=== PATIENT | male | born 1990 | race Caucasian/White ===

== ENCOUNTER 2025-04-18 16:22 | Emergency (ER) | payer BC, SELFPAY ==
[2025-04-18 16:38] VITALS: BP 124/87; PULSE 68; RESP 16; TEMP 36.9; O2SAT 98
--- NOTE | 2025-04-18 17:14 | ED.WOUNDLAC ---
HPI - Wound/Laceration General Chief Complaint: Wound/Laceration Stated Complaint: Cut On Head Time Seen by Provider: 04/18/25 17:00 Source: patient and RN notes reviewed Mode of arrival: ambulatory Limitations: no limitations History of Present Illness HPI narrative: 34-year-old male presents Express Care complaining of scalp injury. Patient said approximately 2 hours ago he was unloading the car when he turned his head and accidentally struck his head on the side of the trunk door. Patient denies losing consciousness, neck pain, back pain, or falling, or any other injuries. Patient denies any headaches, dizziness, lightheadedness, nausea, vomiting, vision changes, or any other symptoms. Patient says tetanus is updated within the last 5 years. Reports a laceration to the left side of his scalp. Related Data Home Medications ?Medication ?Instructions ?Recorded ?Confirmed ?Last Taken ?Type No Home Medications 04/18/25 04/18/25 Unknown History Review of Systems Review of Systems: CONSTITUTIONAL: Denies fever, chills, or sweats. EYES: Denies visual changes, redness, or discharge. ENT: Denies rhinorrhea, congestion, sore throat, or otalgia. CARDIOVASCULAR: Denies chest pain, palpitations, dizziness, lightheadedness, or edema. RESPIRATORY: Denies cough or dyspnea. GASTROINTESTINAL: Denies abdominal pain, nausea, vomiting, or diarrhea. GENITOURINARY: Denies dysuria or hematuria. SKIN: Denies rash or itching. Positive for laceration. MUSCULOSKELETAL: Denies back pain, joint pain, or myalgia. NEUROLOGIC: Denies headache, loss of consciousness, seizures, focal weakness, slurred speech, facial droop, numbness, or weakness. PSYCHIATRIC: Denies anxiety or depression. All other systems reviewed are negative, except as documented in HPI. PMFSH Comments At the time of my signature, I reviewed and agree with the nursing past medical, surgical, social, and family history. There is no relevant family history pertinent to the patient complaint. Exam Narrative: GENERAL: This is a well-nourished, well-developed adult, in no apparent distress. They are non ill-appearing, nontoxic appearing. HEAD: normocephalic, Scalp laceration present. Otherwise atraumatic. See skin note. EYES: Sclera clear/white. Conjunctiva normal. Vision is grossly intact. Extraocular movements intact. Pupils PERRLA EARS: External ears normal, Hearing grossly intact. NOSE: External nose normal THROAT: Mucous membranes moist, NECK: Neck supple, non-tender without lymphadenopathy, masses or thyromegaly. CARDIOVASCULAR: Regular rate and rhythm RESPIRATORY: Respiratory rate normal, respiratory effort nonlabored, no respiratory distress SKIN: Scalp: Linear laceration to the left frontal/parietal scalp measuring approximately 2 cm long. Approximates well. Hemostasis achieved prior to arrival. No area of fluctuance, no induration. NEURO: awake, alert, and oriented to person, place and time. There were no obvious focal neurologic abnormalities. Cranial nerves 2-12 grossly intact. EXTREMITIES: No joint tenderness, effusion, or edema noted. Course Course Emergency Course: Portions of this record may have been created with voice recognition software Level of Care: Express Care Visit Vital Signs Vital signs: Vital Signs Temperature 98.4 F 04/18/25 16:38 Pulse Rate 68 04/18/25 16:38 Respiratory Rate 16 04/18/25 16:38 Blood Pressure 124/87 04/18/25 16:38 Pulse Oximetry 98 04/18/25 16:38 Temperature 98.4 F 04/18/25 16:38 Pulse Rate 68 04/18/25 16:38 Respiratory Rate 16 04/18/25 16:38 Blood Pressure 124/87 04/18/25 16:38 Pulse Oximetry 98 04/18/25 16:38 Reviewed Procedures Laceration Laceration 1: Date: 04/18/25 Time: 17:10 Site: scalp Side (If applicable): left Size (cm): 2 Description: linear Depth: simple, single layer Local Anesthetic: none Pre-repair: wound explored and irrigated extensively ====== Skin Level ====== Skin layer closed with: oren (3) ====== Subcutaneous Layer ====== ====== Muscle Layer ====== ====== Tendon Layer ====== Dressing: Open air, patient tolerated procedure well MDM - Wound/Laceration MDM Narrative Medical decision making narrative: 3 oren applied the patient is laceration. Successful laceration repair. His tetanus is already up-to-date. Patient neurologically intact. Wound cleansed and irrigated by nursing staff. Discussed physical exam findings. Advised supportive measures and signs/symptoms to go to the ER. Pt is appropriate for outpt treatment and f/u. Critical Care Time Critical Care Time Critical Care Time: No Discharge Plan Discharge Clinical Impression: Laceration of scalp Qualifiers: Encounter type: initial encounter Qualified Code(s): S01.01XA - Laceration without foreign body of scalp, initial encounter Patient Disposition: Home Condition: Stable Instructions: Staple Care (ED) Additional Instructions: Staple will need to be removed in 7-10 days. Wash scalp daily with mild soap and water. Keep the area dry. You may leave it open to air. Do not soak or scrub the wound. Avoid any peroxide. Avoid dirty water to the wound has healed completely. Follow-up with PCP in 3-5 days. Please go to ER if he develops signs of infection such as increased redness, swelling, pain, green/L drainage, fevers, body aches, chills, nausea, vomiting or any signs of a head injury include severe headaches, vision changes, dizziness, lightheadedness, slurred speech, confusion, facial droop, one-sided weakness, nausea, vomiting, breathing problems, or any serious concerns. Patient Language: Tam[place] Prescriptions: No Action No Home Medications Follow-up/Referrals: PHYSICIAN,CEMENTING MACHINE OPERATOR [Primary Care Provider, Internal Medicine] Time of Disposition: 17:11
== END 2025-04-18 17:14 | disposition home or self-care (01) ==
DX: S01.01XA Laceration without foreign body of scalp, initial encounter (principal); W22.8XXA Striking against or struck by other objects, initial encounter
CPT/HCPCS: 12001; 99202; G0463

== ENCOUNTER 2025-04-26 14:27 | Emergency (ER) | payer BC, SELFPAY ==
--- NOTE | 2025-04-26 14:31 | ED_ITS ---
HPI - General Adult General Chief complaint: Wound/Laceration Stated complaint: STAPLE REMOVAL Source: patient Mode of arrival: ambulatory Limitations: no limitations History of Present Illness HPI narrative: Pt presents today for staple removal. 3 oren were placed to L. side of scalp approximately 10 days ago. He denies any complaints/concerns Related Data Home Medications ?Medication ?Instructions ?Recorded ?Confirmed ?Last Taken ?Type No Home Medications 04/18/25 04/18/25 U nknown History Allergies Allergy/AdvReac Type Severity Reaction Status Date / Time No Known Allergies Allergy Verified 04/18/25 18:28 Review of Systems 2 Review of Systems: CONSTITUTIONAL: Denies body aches, fever, chills, or sweats. EYES: Denies visual changes, redness, or discharge. ENT: Denies rhinorrhea, congestion, sore throat, or otalgia. CARDIOVASCULAR: Denies chest pain, palpitations, or edema. RESPIRATORY: Denies cough or dyspnea. GASTROINTESTINAL: Denies abdominal pain, nausea, vomiting, or diarrhea. GENITOURINARY: Denies dysuria or hematuria. SKIN: Reports stapled laceration Denies rash, itching MUSCULOSKELETAL: Denies back pain, joint pain, or myalgia. NEUROLOGIC: Denies headache, numbness, tingling, or weakness. PSYCH: Denies depression or anxiety. All systems reviewed & are unremarkable except as noted in HPI and below Exam 2 Narrative: GENERAL: Well-appearing, well-nourished, and in no acute distress. HEAD: Normocephalic EYES: EOMI. No redness or drainage. Conjunctivae normal. ENT: Mucous membranes pink and moist. NECK: Normal AROM. Supple. CHEST: No respiratory distress. HEART: Regular rate EXTREMITIES: Normal range of motion. SKIN: Warm, dry, no rash. Capillary refill normal. Normal skin turgor. NEURO: No focal deficits. Alert and oriented x3. Gait steady. PSYCH: Normal affect. No signs of depression or anxiety. HENMT: Head images: 1. well-healed laceration with 3 oren present. edges are well approximated. NO signs of infection Course Course Level of Care: Express Care Visit Procedures Other Procedure Procedure 1: Other Procedure: (3) oren removed from L. side of scalp. No evidence of wound dehiscence. Pt tolerated well without complication. Discharge Plan Discharge Clinical Impression: Encounter for removal of oren Patient Disposition: Home Condition: Stable Instructions: Staple Care (ED) Additional Instructions: Go straight to ER should your symptoms become worse or should any new symptoms develop Patient Language: Wallisian Prescriptions: No Action No Home Medications Follow-up/Referrals: PHYSICIAN,DISTRICT COURT JUDGE [Primary Care Provider, Internal Medicine] - 04/27/25 Time of Disposition: 14:37
[2025-04-26 14:35] VITALS: BP 120/79; PULSE 67; RESP 18; TEMP 35.9; O2SAT 99
== END 2025-04-26 14:40 | disposition home or self-care (01) ==
PROVIDERS: Emergency Provider Registered Nurse
DX: S01.01XD Laceration without foreign body of scalp, subsequent encounter (principal); X58.XXXD Exposure to other specified factors, subsequent encounter
CPT/HCPCS: 99211; G0463